=== PATIENT | female | born 1950 | race Caucasian/White ===

== ENCOUNTER → 2018-07-27 | Outpatient (CLI) | payer MEDICARE ==
[~2018-07-27] MED LIST: ALB18R INH; CHOL200018 PO; UMEC1DIS
--- NOTE | 2018-07-27 14:58 | RADIOLOGY IMAGING REPORT ---
FACILITY: [facility] - [place] PATIENT NAME: Agatha Smith : 1950 MR: [id number] V: [id number] EXAM DATE: ORDERING PHYSICIAN: ANGELA TIRADO TECHNOLOGIST: Location: [facility] [place] Patient: Agatha Smith : 1950 Visit/Account:[id number] Date of Sevice: 07/27/2018 CT CHEST W/O CONTRAST History: Upper back pain, stranding of muscle and tendon in back wall of the thorax TECHNIQUE: Contiguous axial images were performed through the chest to the level of the adrenal gla nds. No IV contrast was administered. Coronal and sagittal reformatting was also performed.Dose Lower ing Technique One of the following dose optimization techniques was utilized in the performance of this exam: Autom ated exposure control; adjustment of the mA and/or kV according to the patient's size; or use of an i terative reconstruction technique. Specific details can be referenced in the facility's radiology C T exam operational policy. COMPARISON STUDIES: none. Lungs / Pleura: There is a 3 mm noncalcified subpleural nodule anterolateral aspect of the right up per lobe best seen on image 43 of series 3. . There is a two mm noncalcified nodule anterior aspect of the right middle lobe best seen on image 62. There is a 3 mm noncalcified subpleural nodule lateral aspect of the left lower lobe best seen on brian ge 60. There is a 2 mm subpleural calcified nodule posterior lateral aspect left lower lobe best seen on brian ge 63. No evidence of pleural effusions Mediastinum/nodes: negative. Heart and vessels: There mild calcifications in the thoracic aorta Musculoskeletal / Body wall: . There is a gentle S-shaped scoliosis of the thoracic spine. There are calcifications seen between the posterior aspect of the posterior spinous processes of T3, T4 and T5 which may be ligamentous in origin. The margins appear smooth There are mild spondylotic change s of the thoracic spine. There are minimal infiltrative changes seen in the subcutaneous fat along t he posterior aspect of the mid thorax. Upper abdomen: There are several hypoattenuating lesions within the liver. Most are too small to c haracterize. The largest in the anterior right lobe measuring 1.2 centers in diameter appears to rep resent a cyst by CT Hounsfield units. IMPRESSION: Bilateral pulmonary nodules measuring up to 3 mm FLEISCHNER SOCIETY FOLLOW-UP GUIDELINES FOR NEWLY DETECTED INCIDENTAL NODULES IN PERSONS 35 YEARS OF AGE OR OLDER. *These recommendations do NOT apply to lung cancer screening, patients with immunosuppression or brenda ents with a known primary malignancy. MULTIPLE SOLID NODULES If nodule size is < 6 mm: * Low risk patient ? No routine follow-up. * High risk patient ? Optional CT at 12 months. If nodule size is 6-8 mm: * Low risk patient ? CT at 3-6 months, then consider CT at 18-24 months if no change. * High risk patient ? CT at 3-6 months, then CT at 18-24 months if no change. If nodule size is > 8 mm: * Low risk patient ? CT at 3-6 months, then consider CT at 18-24 months if no change. * High risk patient ? CT at 3-6 months, then consider CT at 18-24 months if no change. LOW RISK PATIENT: Minimal or absent history of tobacco use and of other known risk factors. HIGH RISK PATIENT: Tobacco use, family history of lung cancer, upper pulmonary lobe location of nodul e, presence of emphysema, pulmonary fibrosis, older age. Mary Bethhojocelyn H, Judith DP, Wilio JM, et al. Guidelines for Management of Incidental Pulmonary Nodules Dete cted on CT Images: From the Fleischner Society 2017. Radiology. uchnipn Calcifications are seen between the posterior spinous processes at T3, T4 and T5 which may be ligamen tous in origin. The margins appear smooth. There are minimal infiltrative changes seen in the subcu taneous fat along the posterior aspect of the mid thorax The patient's pain continues MR is recommend ed for further evaluation. Report Dictated By: Daly Block MD at 07/27/2018 2:28 M Report E-Signed By: Daly Block MD at 07/27/2018 2:53 PM WSN:[email or web address]
== END ==
LOC: CT 07:03
PROVIDERS: ATTEND Family Medicine
DX: S29.012A Strain of muscle and tendon of back wall of thorax, initial encounter (principal)
CPT/HCPCS: 71250

== ENCOUNTER 2018-08-16 00:42 | Day surgery (SDC) | payer MEDICARE ==
[~2018-08-16] VITALS: Ht 162.6 cm; Wt 59.9 kg
[2018-08-16] MEDS ORDERED: fentaNYL CITR 100 MCG/2 ML AMP ONE ×2 (07:51→09:37)
[2018-08-16] MEDS ORDERED: PROPOFOL EMUL(*) 10MG/ML 20 ML 20 ML ONE (07:52)
[2018-08-16] MEDS ORDERED: LIDOCAINE MPF 1% 5 ML VIAL ONE (07:52)
[2018-08-16 07:54] VITALS: BP 135/80
[2018-08-16] MEDS ORDERED: MIDAZOLAM 2 MG/2 ML VIAL IVP PRN (07:55)
[2018-08-16] MEDS ORDERED: LIDOCAINE/SOD BICARB 8.4% SYR ID ONE (07:55)
[2018-08-16] MEDS ORDERED: NORMOSOL R SOLN(*) 1000 ML BAG 1,000 ML IV PRN (07:55)
[2018-08-16] MEDS ORDERED: FAMOTIDINE 20 MG TAB PO ONE (07:55)
[2018-08-16] MEDS ORDERED: AMPICILLIN/SULBACT (*) 3 GM VL 3 GM in NS(*) 0.9% 100 ML MINI-BAG 100 ML IVPB ONE (07:55)
[2018-08-16] MEDS ORDERED: ROPIVACAINE 0.5% 20 ML VIAL ONE (08:19)
[2018-08-16] MEDS ORDERED: BACITRACIN OINT 0.9 GM PKT TP ONE ×2 (08:19→09:02)
[2018-08-16 08:29] LABS: PLATELET COUNT, AUTOMATED 266 K/uL (150-450)
[2018-08-16] MEDS ORDERED: ONDANSETRON 4 MG/2 ML VIAL ONE (08:37)
[2018-08-16] MEDS ORDERED: DEXAMETHASONE SOD 4 MG/ML VIAL ONE (08:37)
[2018-08-16] MEDS ORDERED: SUGAMMADEX SOD 200 MG/2 ML SDV ONE (09:21)
[2018-08-16] MEDS ORDERED: OXYC-854 PO (09:42)
[2018-08-16] MEDS ORDERED: DOCU100C56 PO (09:42)
--- NOTE | 2018-08-16 09:47 | Short(Outpt) Discharge Summary ---
Discharge Summary Reason for Hosp/Final Diag: (1) Family history of colon cancer in father Hospital Course & Plan: Colonoscopy completed without problems; normal (2) Personal history of colonic polyps Status: Chronic (3) Umbilical hernia Status: Chronic Hospital Course & Plan: UH repair without mesh completed without problems. Departure Discharge to: Home, Self Care Discharge Instructions Home Meds Active Scripts Docusate Sodium (DOC-Q-LACE) 100 Mg Capsule, 1 CAP PO BID, #30 CAPSULE 0 Refills Prov:ROBERTO FIGUEROA MD 08/16/18 Oxycodone Hcl/Acet 5/325 Mg (ENDOCET 5-325 TABLET) 1 Each Tablet, 1 TAB PO Q6H PRN for PAIN, #20 TAB 0 Refills Prov:ROBERTO FIGUEROA MD 08/16/18 Reported Medications Umeclidinium Brm/Vilanterol Tr (Anoro Ellipta 62.5-25 Mcg INH) Unknown Strength Disk.w.dev, DAILY 07/09/18 Albuterol Sulfate (VENTOLIN HFA) 18 Gm Inh, 1-2 PUFF INH 3-4XD PRN for prn, INH 07/09/18 Cholecalciferol (Vitamin D3) (VITAMIN D) 2,000 Unit Tablet, 2000 UNIT PO DAILY 09/30/13 Follow up Referrals: General Surgery - 08/29/18 @ Surgery, General with ROBERTO FIGUEROA MD You have a follow up appointment scheduled with Dr. Figueroa on 08/29/18, at 1:00pm. Diet: Regular Activity: No Heavy Lifting Special Instructions: You may remove the white surgical dressing on 08/18/18, then you can shower. After showering, leave the incision open to air but leave the steristrips in place until they fall off on their own. Do not immerse the incision for 2 weeks. Avoid any activity that involves straining or lifting more than 10 pounds for 4 weeks after surgery. Your colonoscopy was completed without problems and your prep was excellent (Good Job!!). I didn't find any polyps or other abnormalities. I recommend that you have another colonoscopy in 5 years due to your family history. Problem Qualifiers (1) Umbilical hernia: Obstruction and gangrene presence: without obstruction or gangrene Qualified Codes: K42.9 - Umbilical hernia without obstruction or gangrene ROBERTO FIGUEROA MD Aug 16, 2018 09:47
--- NOTE | 2018-08-16 09:53 | Post Operative Progress Note ---
Post Operative Progress Note Date: Aug 16, 2018 Time: 09:48 Surgeon: Adriano Dictation number: [id number] Anesthesia: LMA by Dr. Guerra Pre-Op Diagnosis: UH FH CRC PH colon polyps Post-Op Diagnosis: SHARITA Findings: 5mm fascial defect closed with 0 ethibon sutures Normal colonoscopy Excellent colon prep 8 minute withdrawal time from cecum Procedure(s): UH repair without mesh Colonoscopy Specimen Removed:(May be N/A): None Complications: None Fluids: See anesthesia record Estimated Blood Loss: Minimal Date OP Note Dictated: Aug 16, 2018 Time OP Note Dictated: 09:49 ROBERTO FIGUEROA MD Aug 16, 2018 09:53
[2018-08-16 10:25] VITALS: BP 121/74
--- NOTE | 2018-08-16 10:38 | OPERATIVE REPORT 1 ---
EVENT DATE: August 16, 2018 SURGEON: Bradley Oh MD ANESTHESIOLOGIST: Shawn Guerra MD ANESTHESIA: LMA. PREOPERATIVE DIAGNOSIS 1. Umbilical hernia. 2. Family history of colorectal cancer. 3. Personal history of colon polyps. POSTOPERATIVE DIAGNOSIS 1. Umbilical hernia. 2. Family history of colorectal cancer. 3. Personal history of colon polyps. PROCEDURE PERFORMED 1. Umbilical hernia repair without mesh. 2. Colonoscopy. COMPLICATIONS None. CONDITION Stable. ESTIMATED BLOOD LOSS Minimal. FINDINGS The patient had a 5 mm fascial defect at her umbilicus that was closed primarily with 0 Ethibond interrupted sutures without mesh. The colonoscopy was normal with an excellent colon prep and she had an 8-minute withdrawal time from the cecum. INDICATIONS This is a 68-year-old female that presented to my office with a bulge at her umbilicus and she is also due for a colonoscopy. She does have a family history involving her father who from colon cancer at 70-year-old and she also reports a previous history of colon polyps. She was requesting to have her umbilical hernia repaired at the same time as the colonoscopy. I informed her that I cannot put mesh in, since the colonoscopy is a dirty procedure and the risk of mesh infection is too high, but fortunately her exam is consistent with a very small umbilical hernia and so the plan would be to repair the umbilical hernia without mesh in conjunction with the colonoscopy. DESCRIPTION OF PROCEDURE The patient was brought to the operating room and placed supine on the operating table. LMA anesthesia was administered and her abdomen was prepped and draped in sterile fashion. A timeout was completed and I injected the supraumbilical skin with 0.5% Ropivacaine plain. I made a curvilinear frowning-face type incision in the superior umbilical rim and dissected down through the dermis and subcutaneous fat. I bluntly dissected around the umbilicus and then the umbilicus from the underlying fascia and the hernia. I cleaned off all the way around the hernia and then divided the neck of the hernia because it only contained fat with electrocautery. I then cleaned off the fascial defect on the superficial deep surfaces and then closed the fascia with interrupted 0 Ethibond sutures in a transverse fashion. I irrigated and dried the wound, and tacked the umbilicus down to the fascia with a single 3-0 Vicryl suture and then closed the skin with 4-0 Monocryl running subcuticular sutures. The skin was cleaned and dried and Steri-Strips were applied, followed by a sterile surgical dressing. She was then placed in the left lateral decubitus position on the table and the colonoscope was set up and tested to insure it was completely functional, lubricated and inserted in the rectum through her anus. I did perform digital rectal exam prior to inserting to the scope and this was unremarkable. I advanced the scope all the way through to the cecum and also in the terminal ileum with very little difficulty and so I withdrew the scope and looked at all mucosal surfaces for any abnormalities. I then retroflexed the scope in the rectum to look at the distal rectum and upper anal canal and this was unremarkable as well. I then desufflated the colon and removed the scope from her colon. The colonoscopy was normal. She was then awakened from LMA. She was transported to the recovery room in stable condition having tolerated the procedure without any apparent problems. SALVADOR
[2018-08-16 11:00] VITALS: BP 121/76
[2018-08-16 11:28] VITALS: BP 112/71
[2018-08-16 11:29] VITALS: BP 105/67
== END 2018-08-16 10:25 | disposition home or self-care (01) ==
LOC: OR 00:42
PROVIDERS: ATTEND Surgery
DX: Z12.11 Encounter for screening for malignant neoplasm of colon (principal); Z86.010 Personal history of colon polyps; Z80.0 Family history of malignant neoplasm of digestive organs
CPT/HCPCS: 00812; 36415; 49585; 85025; A9270; G0121; J0295; J1100; J2001; J2405; J2704; J2795; J3010; C9399